=== PATIENT | female | born 1960 | race Two or more races ===

== ENCOUNTER 2024-11-25 15:17 | Emergency (ER) | payer OTHER ==
[~2024-11-25] VITALS: Ht 172.7 cm; Wt 59.0 kg
[2024-11-25 15:37] VITALS: TEMP 98.2
[2024-11-25] MEDS ORDERED: IBUP-1953 PO (18:21)
[2024-11-25] MEDS ORDERED: ACET-3102 PO (18:46)
[2024-11-25 19:13] VITALS: BP 155/73; O2SAT 100
== END 2024-11-25 19:13 | disposition home or self-care (01) ==
LOC: ER 15:17
DX: R07.89 Other chest pain (principal); R07.81 Pleurodynia; M25.531 Pain in right wrist; Z88.0 Allergy status to penicillin; Z88.5 Allergy status to narcotic agent; V49.9XXA Car occupant (driver) (passenger) injured in unspecified traffic accident, initial encounter; Y93.89 Activity, other specified; Y92.415 Exit ramp or entrance ramp of street or highway as the place of occurrence of the external cause; Y99.8 Other external cause status
CPT/HCPCS: 71111-TC; 73110